=== PATIENT | female | born 1980 | race Caucasian/White ===

== ENCOUNTER 2018-08-22 21:41 | Emergency (ER) | payer SELFPAY, OTHER ==
[2018-08-23] MEDS ORDERED: KETOROLAC 60 MG INJ IM (02:00)
[2018-08-23] MEDS ORDERED: HYDROCODONE/APAP (5/325) TAB PO (02:00)
== END 2018-08-23 02:20 | disposition left against medical advice (07) ==
LOC: FTE 21:41
DX: M79.601 Pain in right arm (principal)
CPT/HCPCS: 99282

== ENCOUNTER 2018-08-23 06:12 | Emergency (ER) | payer MEDICAID ==
[2018-08-23] MEDS: HYDROCODONE/APAP (5/325) TAB PO (08:02)
[2018-08-23] MEDS: ONDANSETRON (ODT) 4 MG TAB ODT (08:02)
== END 2018-08-23 09:56 | disposition home or self-care (01) ==
LOC: FTE 06:12
DX: S42.401A Unspecified fracture of lower end of right humerus, initial encounter for closed fracture (principal); S80.211A Abrasion, right knee, initial encounter; S80.212A Abrasion, left knee, initial encounter; S00.81XA Abrasion of other part of head, initial encounter; W01.0XXA Fall on same level from slipping, tripping and stumbling without subsequent striking against object, initial encounter; Y92.410 Unspecified street and highway as the place of occurrence of the external cause
CPT/HCPCS: 29105; 73030-RT; 73080-RT; 73110-RT; 99283-25